=== PATIENT | male | born 1980 | race Caucasian/White ===

== ENCOUNTER 2016-10-24 11:29 | Emergency (ER) | payer OTHER ==
[2016-10-24 13:12] VITALS: BP 146/78
--- NOTE | 2016-10-24 13:40 | UC ---
Respiratory Complaint HPI - HPI Summary HPI Summary: left anterior ribs pain x 2 days s/p fall 2 days ago and injury to left ribs increase pain with movement and deep breathing - History of Current Complaint Chief Complaint: UCChestPain Stated Complaint: RIB PAIN Time Seen by Provider: 10/24/16 13:20 Hx Obtained From: Patient Onset/Duration: Sudden Onset - 2, Still Present Timing: Constant Severity Initially: Moderate Severity Currently: Moderate Aggravating Factors: Exertion, Deep Breaths Alleviating Factors: Nothing Associated Signs And Symptoms: Positive: Pleuritic Chest Pain. Negative: Dyspnea, Fever, Chills, Wheezing, Hemoptysis, Dizziness, Calf Pain, Calf Swelling, URI, Nasal Congestion - Allergies/Home Medications Allergies/Adverse Reactions: Allergies Allergy/AdvReac Type Severity Reaction Status Date / Time No Known Allergies Allergy Verified 10/24/16 13:12 Home Medications: Home Medications Hydrocodone/APAP 5/300 (NF) [Vicodin 5 MG/300 MG(NF)] 1 tab PO Q6H PRN 10/24/16 [History Confirmed 10/24/16] PMH/Surg Hx/FS Hx/Imm Hx Previously Healthy: Yes - Surgical History Surgical History: None - Family History Known Family History: Negative: Diabetes - Social History Alcohol Use: Occasionally Substance Use Type: Excessive Caffeine Smoking Status (MU): Heavy Every Day Tobacco Smoker Review of Systems Constitutional: Negative Skin: Negative Eyes: Negative ENT: Negative Respiratory: Negative Cardiovascular: Negative Gastrointestinal: Negative Musculoskeletal: Other: - left side ribs pain All Other Systems Reviewed And Are Negative: Yes Physical Exam Triage Information Reviewed: Yes Appearance: Well-Appearing, Well-Nourished, Pain Distress Vital Signs: Initial Vital Signs Temp 98.4 F 10/24/16 13:00 Pulse 79 10/24/16 13:00 Resp 18 10/24/16 13:00 BP 146/78 10/24/16 13:00 Pulse Ox 99 10/24/16 13:00 Vital Signs Reviewed: Yes Eyes: Positive: Conjunctiva Clear ENT: Positive: Normal ENT inspection, Hearing grossly normal, Pharynx normal Neck exam: Normal Neck: Positive: Supple, Nontender Respiratory: Positive: Chest non-tender, Lungs clear, Normal breath sounds Cardiovascular Exam: Normal Cardiovascular: Positive: RRR, No Murmur Abdominal Exam: Normal Abdomen Description: Positive: Nontender, No Organomegaly Musculoskeletal: Positive: Other: - left ribs: no swelling, + tenderness left anterior ribs 5,6,7 UC Diagnostic Evaluation - Laboratory O2 Sat by Pulse Oximetry: 99 Respiratory Course/Dx - Differential Dx/Diagnosis Provider Diagnoses: contusion ribs Discharge - Discharge Plan Condition: Stable Disposition: HOME Patient Education Materials: Rib Contusion (ED) Referrals: No Primary Care Phys,NOPCP [Primary Care Provider] - As Soon As Possible
--- NOTE | 2016-10-24 13:49 | RAD ---
INDICATION: Left rib pain COMPARISON: None TECHNIQUE: Multiple views of the ribs were obtained. FINDINGS: Bones: There is no evidence of acute rib fracture. LUNGS: The lungs are clear. There is no pneumothorax. Pleural spaces: There is no evidence of hemothorax. Other: None IMPRESSION: NO ACUTE RIB FRACTURE.
== END 2016-10-24 14:06 | disposition home or self-care (01) ==
LOC: UCCORT 11:29
DX: S30.1XXA Contusion of abdominal wall, initial encounter (principal); F17.210 Nicotine dependence, cigarettes, uncomplicated; W19.XXXA Unspecified fall, initial encounter; Y92.9 Unspecified place or not applicable
CPT/HCPCS: 99202; G0463

== ENCOUNTER 2019-06-09 10:21 | Inpatient (IN) | payer OTHER ==
[2019-06-09] MEDS ORDERED: Docusate CAP* 100 MG PO PRN (13:38)
[2019-06-09] MEDS ORDERED: Acetaminophen TAB* 325 MG PO PRN (13:38)
[2019-06-09] MEDS ORDERED: Al Hydrox/Mg Hydrox/Simet LIQ* 30 ML UDC PO PRN (13:38)
[2019-06-09] MEDS ORDERED: Magnesium Hydroxide LIQ* 30 ML UDC PO PRN (13:38)
[2019-06-09] MEDS ORDERED: Bisacodyl SUPP* 10 MG SUPP PR PRN (13:38)
[2019-06-09] MEDS ORDERED: Senna TAB 8.6 mg* TAB PO PRN (13:38)
[2019-06-09] MEDS ORDERED: oxyCODONE TAB* 5 MG TAB PO PRN (13:47)
--- NOTE | 2019-06-09 15:19 | HP ---
CC: Dr. Torres; Dr. Escobar REHABILITATION ADMISSION: DATE OF ADMISSION: 06/09/19 ORTHOPEDIC SURGEON: Dr. Torres at [facility]. NEUROSURGEON: Dr. Escobar at [facility]. REASON FOR ADMISSION: Multitrauma. 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 He was initially hit on the head, but was struck throughout the left side of his body. He lost consciousness. His last memory is walking away from the tree and his first memory afterwards appears to be in the emergency room. His initial GCS was 15. He was taken to [facility] by helicopter. His injuries have included a left posterior scalp laceration, right frontal lobe hemorrhage evaluated by CT of the head as well as MRI of the brain on 05/29/19, T12 burst fracture with 50% compromise of the spinal canal and mild cord edema from T11 to L1 as seen on CT as well as MRI, left scapula fracture, left tibia and fibula fractures, and left rib fractures affecting posterior ribs 4 through 7 on the left side. He was taken to the OR on 05/30/19 where he had percutaneous pedicle screws placed at T11, T12 and L1 with laminotomy on the left at T12 and repair of the scalp laceration by Dr. Escobar. Dr. Torres did closed reduction of the left ankle fracture and applied a left ankle spanning external fixator. Alberto notes that he has had numbness throughout his left leg since the time of the injury. He was taken back to the OR on 06/06/[address] Torres for removal of the external fixator and ORIF of the left ankle with bone graft. After that, he has had improving sensation in his left leg with now tingling sensations and he has some numbness around his left knee since that procedure. He wonders if it is from the nerve block. He was diagnosed with acute blood loss anemia and treated with iron, although that has not been recommended at discharge. His imaging has also included CT scans of the cervical spine, face, chest, abdomen and pelvis. He has had x-rays of his left ankle, left humerus, left tibia-fibula, and left knee. He was noted to have some leukocytosis at admission, which was resolving on last check on . He feels his pain is best controlled using oxycodone 10 mg every 4 hours. OxyContin was added after his last surgery 2 days ago, but he does not feel it has made any difference and prefers not to take it. He denies having any muscle spasms. He was automatically put on gabapentin and methocarbamol, but has not complained of any neuropathic type pain or muscle spasms. He has been using Lovenox for DVT prophylaxis. He is to follow up with Dr. Torres in 2 weeks for suture removal and cast change. He is to follow up with Dr. Escobar on 07/04/19. Prior to admission, he was independent with all mobility and ADLs. With physical therapy, he is requiring contact guard assistance for transfers and min to mod assistance for ambulating up to 30 feet, using a rolling walker and keeping nonweightbearing precautions to the left leg. With occupational therapy, he is requiring minimal assistance for dressing, bathing and toileting. He is allowed to weight bear as tolerated to his left upper extremity, although he does have some pain from his rib fractures as well as around the left scapula. PAST MEDICAL HISTORY: 1. Smoker, but he quit at the time of this accident. 2. Depression and anxiety. MEDICATIONS: Medications recommended at discharge: 1. Bacitracin topically to his scalp b.i.d., which also adding to his back. 2. Gabapentin 300 mg t.i.d. that he no longer wants to take and will be discontinued. 3. Robaxin 500 mg q.i.d., which will be changed to prn 4. Oxycodone 5-10 mg q.4 hours p.r.n. pain. 5. OxyContin 10 mg q.12 hours, which will be discontinued as he does not want to take it. 6. Zoloft 25 mg daily. ALLERGIES: No known drug allergies. FAMILY HISTORY: Noncontributory. SOCIAL HISTORY: He lives in [place] with his female partner and their 2 children ages 2 and 7. Their home has 2 steps to enter and then he plans to stay on 1 level. There is a bathroom on that level. There is a second floor where his bedroom normally is, but it was difficult to ascend the stairs even when he was healthy and therefore, he wants to stay on the first level. His female partner is a home health aide and is available to help him after discharge. Prior to this injury, he was smoking 1 to 1-1/2 packs per day. He has since quit and does not plan to restart. He denies significant alcohol use. 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 In his free time, he enjoys golfing and playing with his kids. If he cannot make decisions for himself, his female partner, Bethany Aragon, is his healthcare proxy. Her phone number is [phone]. REVIEW OF SYSTEMS: See history of present illness and past medical history. The remainder of the 13-system review was completed. No other significant findings. PHYSICAL EXAMINATION GENERAL: Well-developed, well-nourished, appearing stated age. VITAL SIGNS: Temperature 98 Fahrenheit, heart rate 85, blood pressure 133/76, oxygenation 97% on room air, respiratory rate 16. MENTAL STATUS: No acute distress. Alert and oriented x3. He is acting appropriately. HEENT: He has a scalp laceration on the left, which is intact and does not appear infected. Oropharynx is clear. Moist mucous membranes. LUNGS: Clear to auscultation bilaterally. HEART: Regular rate and rhythm. ABDOMEN: Active bowel sounds. Soft, nontender, nondistended. EXTREMITIES: His left leg is casted and wrapped, otherwise no clubbing, cyanosis, or edema. MUSCULOSKELETAL EXAM: Limited testing of the left ankle due to his casting. He does not have full range of motion of his left shoulder due to some pain limitation at least. SPINE: He is tender to palpation at his surgical site. His skin was glued from the percutaneous pinning, but 3 other sites have subcutaneous tissue that is visible. There does not appear to be any active drainage. There is no erythema or warmth. NEUROLOGIC EXAM: Cranial nerves II through XII are intact. Upper and lower extremities motor 5/5 bilaterally with normal sensation except for numbness around his left knee and tingling in his left toes. Manual muscle testing is limited for the left ankle and toes due to his splinting. He has some pain limitation for left shoulder external rotation and abduction. DIAGNOSTIC STUDIES/LAB DATA: Labs on 06/07/19, white blood cell count was 13.8 , hemoglobin 10.7, hematocrit 31.9, platelets 408. IMPRESSION: A 39-year-old man with multitrauma from a work injury when a tree fell on him. Injuries include mild traumatic brain injury with right frontal hemorrhage; T12 burst fracture with spinal cord edema status post percutaneous pinning; left scapula fracture; left tibia/fibula fracture status post ORIF with bone graft; left rib fractures 4 through 7 and acute blood loss anemia. He will be admitted to [facility], so he can return to living independently with his family. PLAN: 1. Left ankle fracture. Continue nonweightbearing status. Followup with Dr. Torres in 2 weeks. PT and OT. We will try discontinuing the gabapentin, but if he has increasing neuropathic symptoms in his foot and leg, we will restart it 300 mg t.i.d. 2. Traumatic brain injury. He seems to have a short time period of pre and posttraumatic amnesia surrounding the event. His initial GCS was 15. It was discussed that his prognosis was good for his memory. He will be evaluated by our speech therapist for his cognition. 3. T12 burst fracture with T11 to L1 spinal cord edema, status post pinning T11 , T12 and L1. He is to follow up with Dr. Escobar on 07/04/19. Will apply Bacitracin to the surgical sites until they are closed. 4. Left scalp laceration. Bacitracin b.i.d. 5. DVT prophylaxis. Continue with Lovenox while he is on the rehabilitation unit. 6. Left scapula fracture. He is weightbearing as tolerated. He could have an underlying rotator cuff tear, but it is hard to differentiate that until his fracture is better healed. 7. Acute blood loss anemia. Recheck his labs tomorrow to determine if needs to be on any further iron supplementation. 8. Analgesia. He does not want to take OxyContin, so continue oxycodone 5 to 10 mg q.4 hours p.r.n. pain. He has p.r.n. Robaxin if needed for muscle spasm and once again, we will see if he needs gabapentin at all. 9. Advance directives. He is a full code. His female partner, Bethany Aragon, is his healthcare proxy if he cannot make decisions for himself. Her phone number is [phone]. ESTIMATED LENGTH OF STAY: To be determined after the therapist evaluations and interdisciplinary plan of care meeting, but likely in the 7 to 10 day range. [id number] #: [id number] NAILA
[2019-06-09] MEDS: Enoxaparin(*) 30 MG/0.3 ML SYR SUBCUT SCH (15:51)
[2019-06-09] MEDS: oxyCODONE TAB* 5 MG TAB PO PRN ×2 (15:51→19:46)
[2019-06-09] MEDS: Bacitracin OINTMENT* 0.5% 0.5 oz TUBE TOPICAL SCH (19:24)
[2019-06-10] MEDS: oxyCODONE TAB* 5 MG TAB PO PRN ×5 (00:24→22:34)
[2019-06-10 04:38] LABS: ABS Basophils 0.1 10^3/ul (0-0.2); ABS Eosinophils 0.3 10^3/ul (0-0.6); ABS Neutrophils 5.9 10^3/ul (1.5-7.7); Eosinophil % 2.5 %; Hematocrit 34 % (42-52); Hemoglobin 11.9 g/dL (14.0-18.0); Lymphocyte % 29.1 %; Mean Corpuscular HGB Conc 35 g/dL (31-36); Mean Corpuscular Hemoglobin 32 pg (27-31); Mean Corpuscular Volume 91 fL (80-94); Mean Platelet Volume 7.1 fL (7.4-10.4); Platelet Count 539 10^3/uL (150-450); Red Blood Count 3.77 10^6 /uL (4.18-5.48); Red Cell Distribution Width 13 % (10-15); White Blood Count 10.2 10^3/uL (3.5-10.8)
[2019-06-10 04:49] LABS: Albumin 3.6 g/dL (3.2-5.2); Albumin/Globulin Ratio 1.1 (1-3); BUN/Creatinine Ratio 22.1 (8-20); Calcium 9.7 mg/dL (8.6-10.3); EGFR African American 157.9 (>60); EGFR Non-African American 130.5 (>60); Globulin 3.2 g/dL (2-4); Potassium 4.4 mmol/L (3.5-5.0); Total Bilirubin 0.6 mg/dL (0.2-1.0); Total Protein 6.8 g/dL (6.4-8.9)
[2019-06-10] MEDS: Bacitracin OINTMENT* 0.5% 0.5 oz TUBE TOPICAL SCH ×2 (09:10→22:37)
--- NOTE | 2019-06-10 11:09 | PN ---
Progress Note Date of Service: 06/10/19 Note: FELIZ RAMOS was visited. Nursing and therapy notes read and reviewed. OT eval in progress. No chest pain, shortness of breath or abdominal pain. He denies any nerve type pain or muscle spasms. Dosing of oxycodone is stretching out. He was itching his back last night at the surgical site and then staff told him not to. He denies need for benadryl. Current Medications: Active Medications Generic Name Dose Route Start Last Admin Trade Name Freq PRN Reason Stop Dose Admin Acetaminophen 650 mg 06/09/19 13:47 Tylenol Tab* PO Q4H PRN FEVER > 101 or mild pain Al Hydrox/Mg Hydrox/Simethicone 30 ml 06/09/19 13:38 Maalox Plus* PO Q6H PRN INDIGESTION Bacitracin 1 applic 06/09/19 21:00 06/09/19 19:24 Bacitracin Ointment* TOPICAL Not Given BID CHARITO Bisacodyl 10 mg 06/09/19 13:38 Dulcolax Supp* [place] DAILY PRN CONSTIPATION Docusate Sodium 100 mg 06/09/19 13:38 Colace Cap* PO BID PRN CONSTIPATION Enoxaparin Sodium 30 mg 06/09/19 14:00 06/09/19 15:51 Lovenox(*) SUBCUT 30 mg Q24H CHARITO Administration Magnesium Hydroxide 30 ml 06/09/19 13:38 Milk Of Magnesia Liq* PO Q6H PRN CONSTIPATION Methocarbamol 750 mg 06/09/19 13:46 Robaxin Tab* PO QID PRN SPASMS - MUSCLE Oxycodone HCl 10 mg 06/09/19 13:46 06/10/19 07:59 Roxycodone Tab* PO 10 mg Q4H PRN Administration PAIN - SEVERE Oxycodone HCl 5 mg 06/09/19 13:47 Roxycodone Tab* PO Q4H PRN PAIN - MODERATE Senna 2 tab 06/09/19 13:38 Senokot 8.6 Mg Tab* PO BEDTIME PRN CONSTIPATION Vital Signs: Vital Signs Temp Pulse Resp BP Pulse Ox 98.0 F 71 18 113/72 95 06/10/19 07:03 06/10/19 07:03 06/10/19 10:57 06/10/19 07:03 06/10/19 08:00 Lab Results: Laboratory Results - last 24 hr 06/10/19 06/10/19 04:27 04:27 WBC 10.2 RBC 3.77 L Hgb 11.9 L Hct 34 L MCV 91 MCH 32 H MCHC 35 RDW 13 Plt Count 539 H MPV 7.1 L Neut % (Auto) 58.0 Lymph % (Auto) 29.1 [place] % (Auto) 9.5 Eos % (Auto) 2.5 Baso % (Auto) 0.9 Absolute Neuts (auto) 5.9 Absolute Lymphs (auto) 3.0 Absolute Monos (auto) 1.0 H Absolute Eos (auto) 0.3 Absolute Basos (auto) 0.1 Absolute Nucleated RBC 0.0 Nucleated RBC % 0.0 Sodium 136 Potassium 4.4 Chloride 101 Carbon Dioxide 30 Anion Gap 5 BUN 15 Creatinine 0.68 Est GFR ( Amer) 157.9 Est GFR (Non-Af Amer) 130.5 BUN/Creatinine Ratio 22.1 H Glucose 105 H Calcium 9.7 Total Bilirubin 0.60 AST 98 H ALT 166 H Alkaline Phosphatase 186 H Total Protein 6.8 Albumin 3.6 Globulin 3.2 Albumin/Globulin Ratio 1.1 Exam: GEN: no acute distress. alert and appropriate. LUNGS: clear to auscultation bilaterally. CV: regular rate and rhythm. ABD: + bowel sounds, soft, non-tender, non-distended EXT: Left leg in splint. No RLE edema. NEURO: bilateral LE 5/5 motor with limited testing of left foot and ankle. Sensation still impaired in left leg around knee and down into leg and foot. SKIN: Left scalp lac intact glued. Lower back surgical sites still with 3 that have some subcutaneous tissue visible. Lowest on left more open than yesterday. Dressing had mild serosanguinous drainage. He was told not to itch. No surrounding erythema or purulence. Assessment/Plan: 39yo man with multitrauma from work injury when tree fell on him. #T12 burst fx with T11-L1 spinal cord edema: I advised left leg numbness could be from an incomplete spinal cord injury, sciatic nerve injury or other peripheral nerve injury. These cannot be distinguished at this time. Once his bones are healed in the ankle, if he still has issues he could have EMG/NCS. Surgical sites not completely closed. Bacitracin and keep covered. Educated to not touch the area. Now he knows. If not improving he may need to see Dr. Escobar sooner than 07/04/19. #Left ankle fx s/p ext fix and ORIF: NWB LLE. PT/OT. f/u Dr. Torres 2 weeks post- op #Mild TBI: pending speech eval #Scalp laceration: bacitraicin #Left scapula fx: f/u with Dr. Torres. WBAT LUE. #Analgesia: oxycodone prn #Anemia: stable/improving. No need for iron supplement #Transaminitis: Likely due to medications around injury. On 05/29 at presentation LFTs were normal. f/u on Wednesday labs. #DVT ppx: Lovenox. Not listed on [facility] discharge summary, so should not be needed at d/c from rehab. #Estimated LOS: pending OT evaluation. 06/10/19 11:09
[2019-06-10] MEDS: Acetaminophen TAB* 325 MG PO PRN ×3 (11:42→22:32)
[2019-06-10] MEDS: Methocarbamol TAB* 500 MG PO PRN (15:19)
[2019-06-10] MEDS: Enoxaparin(*) 30 MG/0.3 ML SYR SUBCUT SCH (15:21)
[2019-06-11] MEDS: Acetaminophen TAB* 325 MG PO PRN ×4 (08:30→22:07)
[2019-06-11] MEDS: oxyCODONE TAB* 5 MG TAB PO PRN ×4 (08:30→22:08)
[2019-06-11] MEDS: Bacitracin OINTMENT* 0.5% 0.5 oz TUBE TOPICAL SCH ×2 (08:32→22:09)
--- NOTE | 2019-06-11 11:29 | PN ---
Progress Note Date of Service: 06/11/19 Note: FELIZ RAMOS was visited. Nursing and therapy notes read and reviewed. He would like to go home jacinto. Did well with PT and OT. Able to toilet self. Took methocarbamol for some back spasms yesterday that helped. He feels better every day. + BM. No chest pain, shortness of breath or abdominal pain. Current Medications: Active Medications Generic Name Dose Route Start Last Admin Trade Name Freq PRN Reason Stop Dose Admin Acetaminophen 650 mg 06/09/19 13:47 06/11/19 08:30 Tylenol Tab* PO 650 mg Q4H PRN Administration FEVER > 101 or mild pain Al Hydrox/Mg Hydrox/Simethicone 30 ml 06/09/19 13:38 Maalox Plus* PO Q6H PRN INDIGESTION Bacitracin 1 applic 06/09/19 21:00 06/11/19 08:32 Bacitracin Ointment* TOPICAL 1 applic BID CHARITO Administration Bisacodyl 10 mg 06/09/19 13:38 Dulcolax Supp* [place] DAILY PRN CONSTIPATION Docusate Sodium 100 mg 06/09/19 13:38 Colace Cap* PO BID PRN CONSTIPATION Enoxaparin Sodium 30 mg 06/09/19 14:00 06/10/19 15:21 Lovenox(*) SUBCUT 30 mg Q24H CHARITO Administration Magnesium Hydroxide 30 ml 06/09/19 13:38 Milk Of Magnesia Liq* PO Q6H PRN CONSTIPATION Methocarbamol 750 mg 06/09/19 13:46 06/10/19 15:19 Robaxin Tab* PO 750 mg QID PRN Administration SPASMS - MUSCLE Oxycodone HCl 10 mg 06/09/19 13:46 06/11/19 08:30 Roxycodone Tab* PO 10 mg Q4H PRN Administration PAIN - SEVERE Oxycodone HCl 5 mg 06/09/19 13:47 Roxycodone Tab* PO Q4H PRN PAIN - MODERATE Senna 2 tab 06/09/19 13:38 Senokot 8.6 Mg Tab* PO BEDTIME PRN CONSTIPATION Vital Signs: Vital Signs Temp Pulse Resp BP Pulse Ox 97.9 F 71 17 121/65 97 06/11/19 05:52 06/11/19 05:52 06/11/19 08:30 06/11/19 05:52 06/11/19 05:52 Exam: GEN: no acute distress. alert and appropriate. LUNGS: clear to auscultation bilaterally. CV: regular rate and rhythm. ABD: + bowel sounds, soft, non-tender, non-distended EXT: Left leg in splint. No RLE edema. NEURO: bilateral LE 5/5 motor with limited testing of left foot and ankle. Sensation improving around left knee but still numb in under splint and in foot. SKIN: Left scalp lac intact glued. Lower back surgical sites still with 3 that have some subcutaneous tissue visible. It looks a little better today. Dressing had mild serosanguinous drainage but less than yesterday. No surrounding erythema or purulence. Assessment/Plan: 39yo man with multitrauma from work injury when tree fell on him. #T12 burst fx with T11-L1 spinal cord edema: I advised left leg numbness could be from an incomplete spinal cord injury, sciatic nerve injury or other peripheral nerve injury. These cannot be distinguished at this time. Once his bones are healed in the ankle, if he still has issues he could have EMG/NCS. Surgical sites not completely closed. Bacitracin and keep covered. Educated to not touch the area. If not improving he may need to see Dr. Escobar sooner than 07/04/19. #Left ankle fx s/p ext fix and ORIF: NWB LLE. PT/OT. f/u Dr. Torres 2 weeks post- op #Mild TBI: pending speech eval #Scalp laceration: bacitraicin #Left scapula fx: f/u with Dr. Torres. WBAT LUE. #Analgesia: oxycodone prn. methocarbamol prn. #Anemia: stable/improving. No need for iron supplement #Transaminitis: Likely due to medications around injury. On 05/29 at presentation LFTs were normal. f/u on Wednesday labs. #DVT ppx: Lovenox. Not listed on [facility] discharge summary, so should not be needed at d/c from rehab. #Estimated LOS: He would like to go home Wednesday. This appears reasonable but we need to communicate with his case operator on Wednesday to obtain equipment, home care for wound checks and home safety eval and authorize medications ( oxycodone and methocarbamol). I do not think he should shower until there is no drainage from back incisions or cleared by Dr. Escobar. 06/11/19 11:24
[2019-06-11] MEDS: Enoxaparin(*) 30 MG/0.3 ML SYR SUBCUT SCH (14:55)
[2019-06-12] MEDS: Acetaminophen TAB* 325 MG PO PRN ×4 (05:51→19:57)
[2019-06-12] MEDS: oxyCODONE TAB* 5 MG TAB PO PRN ×4 (05:52→19:56)
[2019-06-12 05:56] LABS: Albumin 3.7 g/dL (3.2-5.2); Albumin/Globulin Ratio 1.2 (1-3); Calcium 9.2 mg/dL (8.6-10.3); EGFR Non-African American 116.6 (>60); Globulin 3.1 g/dL (2-4); Potassium 4.4 mmol/L (3.5-5.0); Total Bilirubin 0.5 mg/dL (0.2-1.0); Total Protein 6.8 g/dL (6.4-8.9)
[2019-06-12] MEDS: Bacitracin OINTMENT* 0.5% 0.5 oz TUBE TOPICAL SCH ×2 (09:31→19:57)
--- NOTE | 2019-06-12 10:34 | PN ---
Progress Note Date of Service: 06/12/19 Note: FELIZ RAMOS was visited. Nursing notes read and reviewed. No chest pain, shortness of breath or abdominal pain. Current Medications: Active Medications Generic Name Dose Route Start Last Admin Trade Name Freq PRN Reason Stop Dose Admin Acetaminophen 650 mg 06/09/19 13:47 06/12/19 05:51 Tylenol Tab* PO 650 mg Q4H PRN Administration FEVER > 101 or mild pain Al Hydrox/Mg Hydrox/Simethicone 30 ml 06/09/19 13:38 Maalox Plus* PO Q6H PRN INDIGESTION Bacitracin 1 applic 06/09/19 21:00 06/12/19 09:31 Bacitracin Ointment* TOPICAL 1 applic BID CHARITO Administration Bisacodyl 10 mg 06/09/19 13:38 Dulcolax Supp* [place] DAILY PRN CONSTIPATION Docusate Sodium 100 mg 06/09/19 13:38 Colace Cap* PO BID PRN CONSTIPATION Enoxaparin Sodium 30 mg 06/09/19 14:00 06/11/19 14:55 Lovenox(*) SUBCUT 30 mg Q24H CHARITO Administration Magnesium Hydroxide 30 ml 06/09/19 13:38 Milk Of Magnesia Liq* PO Q6H PRN CONSTIPATION Methocarbamol 750 mg 06/09/19 13:46 06/10/19 15:19 Robaxin Tab* PO 750 mg QID PRN Administration SPASMS - MUSCLE Oxycodone HCl 10 mg 06/09/19 13:46 06/12/19 05:52 Roxycodone Tab* PO 10 mg Q4H PRN Administration PAIN - SEVERE Oxycodone HCl 5 mg 06/09/19 13:47 Roxycodone Tab* PO Q4H PRN PAIN - MODERATE Senna 2 tab 06/09/19 13:38 Senokot 8.6 Mg Tab* PO BEDTIME PRN CONSTIPATION Vital Signs: Vital Signs Temp Pulse Resp BP Pulse Ox 97.9 F 71 16 137/77 98 06/12/19 05:55 06/12/19 05:55 06/12/19 05:55 06/12/19 05:55 06/12/19 05:55 Lab Results: Laboratory Results - last 24 hr 06/12/19 05:22 Sodium 138 Potassium 4.4 Chloride 103 Carbon Dioxide 29 Anion Gap 6 BUN 18 Creatinine 0.75 Est GFR ( Amer) 141.0 Est GFR (Non-Af Amer) 116.6 BUN/Creatinine Ratio 24.0 H Glucose 107 H Calcium 9.2 Total Bilirubin 0.50 AST 40 H ALT 128 H Alkaline Phosphatase 203 H Total Protein 6.8 Albumin 3.7 Globulin 3.1 Albumin/Globulin Ratio 1.2 Exam: GEN: no acute distress. alert and appropriate. LUNGS: clear to auscultation bilaterally. CV: regular rate and rhythm. ABD: + bowel sounds, soft, non-tender, non-distended EXT: Left leg in splint. No RLE edema. NEURO: bilateral LE 5/5 motor with limited testing of left foot and ankle. Sensation still improving around left knee but still numb under splint and in foot. SKIN: Left scalp lac intact glued. Lower back surgical sites still with 3 that have some subcutaneous tissue visible. It looks a little better today again. Dressing had mild serous drainage but less than yesterday. No surrounding erythema or purulence. There is some skin irritation from tape. Assessment/Plan: 39yo man with multitrauma from work injury when tree fell on him. #T12 burst fx with T11-L1 spinal cord edema: I advised left leg numbness could be from an incomplete spinal cord injury, sciatic nerve injury or other peripheral nerve injury. These cannot be distinguished at this time. Once his bones are healed in the ankle, if he still has issues he could have EMG/NCS. Surgical sites not completely closed. Bacitracin and keep covered loosely. Hold on shower until closed. Educated to not touch the area. f/u with Dr. Escobar. #Left ankle fx s/p ext fix and ORIF: NWB LLE. PT/OT. f/u Dr. Torres 2 weeks post- op #Mild TBI: pending speech eval #Scalp laceration: bacitraicin #Left scapula fx: f/u with Dr. Torres. WBAT LUE. #Analgesia: oxycodone prn. methocarbamol prn. #Anemia: stable/improving. No need for iron supplement #Transaminitis: Improving. Likely due to medications around injury. On 05/29 at presentation LFTs were normal. #DVT ppx: Lovenox. Not listed on [facility] discharge summary, so should not be needed at d/c from rehab. #Estimated LOS: He would like to go home tomorrow. I d/w PT/OT. This appears reasonable but we need to communicate with his [employer]er [employer] tomorrow to obtain equipment; home care for wound checks, PT/OT and home safety eval; and authorize medications (oxycodone and methocarbamol). I do not think he should shower until there is no drainage from back incisions or cleared by Dr. Escobar. 06/12/19 10:31
[2019-06-12] MEDS: Sertraline* 25 MG TAB PO SCH (11:29)
[2019-06-12] MEDS: Methocarbamol TAB* 500 MG PO PRN (14:34)
[2019-06-12] MEDS: Enoxaparin(*) 30 MG/0.3 ML SYR SUBCUT SCH (14:35)
[2019-06-13] MEDS: oxyCODONE TAB* 5 MG TAB PO PRN ×3 (06:06→14:02)
[2019-06-13] MEDS: Methocarbamol TAB* 500 MG PO PRN ×2 (06:06→14:02)
[2019-06-13 06:33] VITALS: BP 122/80
[2019-06-13] MEDS: Sertraline* 25 MG TAB PO SCH (09:11)
[2019-06-13] MEDS: Bacitracin OINTMENT* 0.5% 0.5 oz TUBE TOPICAL SCH (09:11)
--- NOTE | 2019-06-13 12:32 | PMRUTEAM ---
PMRU: Team Meeting Current Status: Nursing: Current Status Skin Deviations [Left Lateral Incision Head] Skin Deviations [Lower Back] Incision Skin Deviations [Left Lower Incision Leg] Skin Deviation Description [ bacitracin applied Left Lateral Head] Skin Deviation Description [ lower incision [place], bacitracin applied Lower Back] Skin Deviation Description [ cast CDI Left Lower Leg] Physical Therapy: Current Status Bed Mobility Assistance Independent Transfer Mobility Assistance Independent Transfer/Bed Mobility Rolling Walker Recommended Devices Ambulation Assistance Independent Ambulation Assistive Devices Rolling Walker Number of Feet Patient 75 Ambulated Stairs Assistance Independent Stairs Recommended Devices Two Rails Number of Stairs 5 Manual Wheelchair Control/ Bilateral UE's Technique Wheelchair Propulsion Ability Independent Wheelchair Distance (ft) 200 Occupational Therapy: Current Status Upper Body Dressing Independent Lower Body Dressing Independent Bathing Supervision Toileting Independent Toilet Transfer Independent Shower Transfer Contact Guard Assist Eating Independent Rec Therapy: Current Status Summary of Assessment and Pt. was open to conversation - cooperative and Clinical Impression appropriate. Pt.'s was present and contributed to the conversation as well. Pt. expressed feeling "down" as he felt he didn't need to be on the unit and would really like to go home. Pt. identified with few interests and felt "boring" for not identifying with more. Pt. states he life is mainly work and and his family. Pt. declined pet therapy but was open to continued leisure visits. Treatment Goals Pt. will engage in leisure activities while on the unit. Treatment Plan Provide recreation therapy services and encourage involvement. Nutrition: Current Status Monitoring pt adm 06/09 following multitrauma after being struck by a tree. Suffered TBI, scalp laceration, T12 burst fx, and left ankle fx. Nutrition assessment planned 06/16 per [facility] protocol. He is receiving a regular diet and is eating well per documentation. No difficulty chewing or swallowing. Labs reviewed and notable for elevated LFTs. Initial goals as outlined below. Goals: Physical Therapy: Initial Goals Bed Mobility Assistance Independent Transfer Mobility Assistance Independent Transfer/Bed Mobility Rolling Walker Recommended Devices Ambulation Independent Ambulation Recommended Devices Rolling Walker Ambulation Distance 50 Wheelchair Propulsion Ability Independent Wheelchair Distance (ft) 150 Stairs Assistance Independent Stair Recommended Devices Two Rails Number of Stairs 5 Home Exercise Program Independent Assistance Physical Therapy: Updated Goals Transfer/Bed Mobility Rolling Walker Recommended Devices Occupational Therapy: Initial Goals Goals to be Completed in (Days 3-5 days ) Upper Body Bathing Routine Modified Independent with Lower Body Bathing Routine Modified Independent with Upper Body Dressing Routine Modified Independent with Lower Body Dressing Routine Modified Independent with Toilet Hygeine and Clothing Modified Independent with Management Routine Toilet Transfer Routine Modified Independent with Tub Transfer Routine Modified Independent with Functional Transfers for ADL Modified Independent with Grooming Routine Independent Feeding Routine Independent Light Housekeeping Tasks Modified Independent with Nutrition: Goals Intervention Goals 1. adequate intake to support hydration and lean body mass without add'l wt gain 2. maintain serum electrolytes WNL 3. improved serum transaminases toward normal ranges 4. regulation of bowel pattern; no c/o constipation (or diarrhea) Care Plan: Care Plan ADL's - Improve/Maintain Start: 06/10/19 12:39 Freq: DAILY@[id number],1900 Status: Active Target: 06/11/19 Protocol: Activity Type Activity Date Activity User E-Sign Co-Sign Detail Recorded Client Recorded Date Recorded By Document 06/10/19 12:39 [id number] 06/10/19 12:39 [id number] 06/10/19 12:39 PMRU Outcome: ADL's/ADL Transfers Orders/Interventions Occupational Therapy Evaluation & Treatment Device Yes Address Deficits Secondary To: T12 burst fracture and L ankle fracture Patient to receive OT 5x/wk for 60-120 Therex min/day Self Care Management Group Therapy UE/LE ADL's with Assist Yes ADL Transfers with Assist Yes Toileting: Transfers,Clothing Management Yes ,Hygeine w/Assist Light Kitchen/Laundry w/Assist No Other Outcome/Goals Pt tolerates tx session well. No LOB noted throughout session. He is distant supervision for ADL routine. Pt eager to return home Progression Toward Outcome/Goals Progressing Mobility- Improve/Maintain Start: 06/10/19 12:53 Freq: DAILY@0700,1900 Status: Active Target: 06/13/19 Protocol: Activity Type Activity Date Activity User E-Sign Co-Sign Detail Recorded Client Recorded Date Recorded By Document 06/10/19 12:53 [id number] 06/10/19 12:54 [id number] 06/10/19 12:53 PMRU Outcome: Mobility Physical Therapy Evaluation and Yes Treatment Activity OOB with Assistance Yes WBAT Yes: LUE NWB Yes: LLE Device Yes: FWW and manual w/c Assistance Yes: supervision Patient to be seen 5x/wk for 60-120 min/ Therex day for: Mobility Training Gait Training W/C Mobility Balance Current Mobility Outcome/Goals Maintain/ Achieve Baseline Mobility Status Improve Mobility Status Demonstrates Proper Use of Assistive Devices Progression Toward Outcome/Goals Goal Initiation Bed Mobility Yes: Ind Transfers Yes: Mod I with FWW Gait x ft Yes: Mod I with FWW x50ft W/C Mobility x ft Yes: Mod I with w/c x150ft Up/Down Stairs Yes: Mod I with 2 rails x5 steps With HEP Yes: Ind Pain/Comfort-Improve/Maintain Start: 06/09/19 19:14 Freq: DAILY@[id number] Status: Complete Target: 06/13/19 Protocol: Activity Type Activity Date Activity User E-Sign Co-Sign Detail Recorded Client Recorded Date Recorded By Document 06/13/19 09:18 [id number] 06/13/19 09:18 [id number] 06/13/19 09:18 Outcome: Pain/Comfort Current Pain Outcome/Goals Demonstrates Knowledge and Use of Available Comfort Measures Achieves Acceptable Comfort/Pain Level as Determined by Patient/Condit Progression Toward Outcome/Goals Goals Met Outcome/Goals Met Demonstrated Knowledge and Use of Available Comfort Measures Achieved Acceptable Comfort/Pain Level as Determined by Patient/Condit Rec Therapy- Improve/Maintain Start: 06/09/19 16:35 Freq: DAILY@ Status: Complete Target: 06/13/19 Protocol: Activity Type Activity Date Activity User E-Sign Co-Sign Detail Recorded Client Recorded Date Recorded By Document 06/09/19 16:35 [id number] 06/09/19 16:35 [id number] 06/09/19 16:35 PMRU Outcome: Recreation Therapy Current Rec Ther Outcome/Goals Complete Rec Therapy Assessment Meet with Patient Regularly for Support Encourage Leisure Involvement Progression Toward Outcome/Goals Goal Initiation Safety- Improve/Maintain Start: 06/09/19 13:41 Freq: DAILY@[id number] Status: Complete Target: 06/13/19 Protocol: Activity Type Activity Date Activity User E-Sign Co-Sign Detail Recorded Client Recorded Date Recorded By Document 06/13/19 09:18 [id number] 06/13/19 09:18 [id number] 06/13/19 09:18 PMRU Outcome: Safety Current Safety Outcome/Goals Remain Free of Injury or Harm Cooperates with Safety Measures for Least Restrictive Environment Prevent Falls/ Injury Progression Toward Outcome/Goals Goals Met Outcome/Goals Met Remain Free of Injury or Harm Cooperates with Safety Measures for Least Restrictive Environment Prevent Falls/ Injury Equipment Needed Outcome/Goals Met Comment uses walker/w/c for transfers Medicine Note: Length of Stay: 0 days Anticipated Discharge Destination: Tentative Discharge Date: 06/13/19 Discharged to: Home
[2019-06-13] MEDS ORDERED: Enoxaparin(*) 40 MG/0.4 ML SYR SUBCUT ONE (13:35)
--- NOTE | 2019-06-13 21:10 | DS ---
CC: Chante Donovan [facility] in [place]* DISCHARGE SUMMARY: DATE OF ADMISSION: 06/09/19 DATE OF DISCHARGE: 06/13/19 DISCHARGE DIAGNOSES: 1. Multiple trauma. 2. Traumatic brain injury. 3. T12 burst fracture, status post percutaneous pedicle screws, T11 through L1. 4. Fracture of the left tibia and fibula. 5. Left scapular fracture. 6. Right frontal lobe punctate hemorrhage. 7. Acute blood loss anemia. 8. Status post open reduction internal fixation, left ankle. 9. Multiple rib fractures, left side. HISTORY OF PRESENT ILLNESS AND HOSPITAL COURSE: For complete history of the events leading up to his rehab stay, please see the history and physical dictated by Dr. Jackie Reaves on 06/09/19. While on the rehab unit, the patient remained fairly stable from a medical point of view. The patient had a laceration to his scalp and was getting bacitracin to this. He also had a wound over his back from a surgical site and was getting bacitracin to that too. He was maintained on Lovenox for DVT prophylaxis. The patient's pain was well controlled with oral oxycodone. The patient did have numbness in his left leg. It was impossible to distinguish whether it was from sciatic nerve injury , peripheral nerve injury, spinal cord injury, or head injury. The patient did seem to have pretty good movement in his left leg despite the numbness. The patient was seen by physical therapy and occupational therapy and made good gains with all disciplines. With physical therapy at the time of admission, the patient required supervision for transfers, supervision to ambulate 50 feet hopping on his right leg, and with standby assistance for wheelchair mobilities. With occupational therapy at the time of admission, the patient was supervision for upper body dressing, contact guard for lower body dressing, contact guard for toileting and toilet transfers. By the time of discharge, the patient was independent in activities with physical therapy and occupational therapy. He was discharged home on 06/13/19. CONDITION AT DISCHARGE: Stable. DISCHARGE DIET: Regular. DISCHARGE MEDICATIONS: 1. Oxycodone 5 to 10 mg every 4 hours as needed. 2. Robaxin 750 mg up to 4 times a day as needed for spasm. 3. Bacitracin 1 application topically twice a day to his scalp as needed. 4. Zoloft 25 mg daily. 5. Lovenox 40 mg subcutaneously once a day for 10 days. SERVICES AFTER DISCHARGE: Through [facility], the patient will have home nursing to check on his wounds. FOLLOWUP: The patient will follow up with Dr. Torres at [place] as well as Dr. Ashley Escobar in [place] in the next week. TIME SPENT: Time for this discharge was approximately 50 minutes, greater than half of that was spent with the patient and his significant other discussing post- rehabilitation medications, therapies, and services. [id number] #: [id number] MTDD
== END 2019-06-13 14:15 | disposition home health service (06) | DRG 860 ==
LOC: PMRU 12:59
PROVIDERS: ADMIT Physical Medicine & Rehabilitation; ATTEND Physical Medicine & Rehabilitation
PROC: F07Z5ZZ Bed Mobility Treatment (ICD-10-PCS; principal; 2019-06-09)
PROC: F07Z9ZZ Gait Training/Functional Ambulation Treatment (ICD-10-PCS; 2019-06-09)
PROC: F07Z8ZZ Transfer Training Treatment (ICD-10-PCS; 2019-06-09)
PROC: F07Z4ZZ Wheelchair Mobility Treatment (ICD-10-PCS; 2019-06-09)
PROC: F08Z0ZZ Bathing/Showering Techniques Treatment (ICD-10-PCS; 2019-06-09)
PROC: F08Z1ZZ Dressing Techniques Treatment (ICD-10-PCS; 2019-06-09)
PROC: F08Z3ZZ Feeding/Eating Treatment (ICD-10-PCS; 2019-06-09)
DX: S06.349D Traumatic hemorrhage of right cerebrum with loss of consciousness of unspecified duration, subsequent encounter (principal); D62 Acute posthemorrhagic anemia; X58.XXXD Exposure to other specified factors, subsequent encounter; S22.081D Stable burst fracture of T11-T12 vertebra, subsequent encounter for fracture with routine healing; S82.402D Unspecified fracture of shaft of left fibula, subsequent encounter for closed fracture with routine healing; S82.202D Unspecified fracture of shaft of left tibia, subsequent encounter for closed fracture with routine healing; S42.102D Fracture of unspecified part of scapula, left shoulder, subsequent encounter for fracture with routine healing; S22.42XD Multiple fractures of ribs, left side, subsequent encounter for fracture with routine healing; R74.0 Nonspecific elevation of levels of transaminase and lactic acid dehydrogenase [LDH]; R20.0 Anesthesia of skin; F32.9 Major depressive disorder, single episode, unspecified; F41.9 Anxiety disorder, unspecified; Z79.2 Long term (current) use of antibiotics; Z79.891 Long term (current) use of opiate analgesic; Z79.899 Other long term (current) drug therapy; Z87.891 Personal history of nicotine dependence
CPT/HCPCS: 36415; 80053; 85025; A9270-GY; J1650